=== PATIENT | female | born 1990 | race American Indian/Alaskan Native ===

== ENCOUNTER 2019-06-04 18:41 | Emergency (ER) | payer MEDICAID ==
--- NOTE | 2019-06-04 19:02 | Event Note ---
ED Screening Note ED Screening Note: sore throat, headache; vomiting started yesterday ob [facility] dec 03 lmp due aug 07 no abd pain; no bleeding; no cramps This initial assessment/diagnostic orders/clinical plan/treatment(s) is/are subject to change based on patients health status, clinical progression and re- assessment by fellow clinical providers in the ED. Further treatment and workup at subsequent clinical providers discretion. Patient/guardian urged not to elope from the ED as their condition may be serious if not clinically assessed and managed. Initial orders include: ua to ro uti as source of illness reeval in ACC FHT
[2019-06-04 19:05] VITALS: BP 108/61
[2019-06-04] MEDS ORDERED: ZOFRAN ODT PO ONE (19:17)
[2019-06-04 20:12] LABS: Bacteria,Urine 1+ /HPF (Negative); Bilirubin,Urine NEG (Negative); Blood,Urine NEG (Negative); Color,Urine Yellow (Yellow); Mucus,Urine FEW /HPF; Protein,Urine <15 mg/dL mg/dL (Negative); Urobilinogen,Urine < 2.0 mg/dL (<2.0)
[2019-06-04] MEDS ORDERED: ZOFRAN ODT ONE (22:13)
[2019-06-04] MEDS ORDERED: CLEOCIN PO ONE (23:56)
[2019-06-04] MEDS ORDERED: TYLENOL PO ONE (23:56)
[2019-06-04] MEDS ORDERED: DELTASONE PO ONE (23:56)
--- NOTE | 2019-06-05 00:04 | Emergency Department Report ---
- General Chief Complaint: Upper Respiratory Infection Stated Complaint: /SORE THROAT/VOMITING Time Seen by Provider: 06/04/19 19:00 Source: patient Mode of arrival: Ambulatory Limitations: No Limitations - History of Present Illness Initial Comments: Patient is a 28-year-old female who presents with sore throat cough and congestion patient patient history of present patient denies abdominal pain or shortness of breath and back pain and vaginal bleeding no contractions during her -related concerns MD Complaint: fever, sore throat, rhinorrhea, nasal congestion Onset/Timin -: days(s) Severity: moderate Severity scale (0 -10): 4 Quality: burning, aching Consistency: constant Improves With: nothing Worsens With: nothing Associated Symptoms: fever, chills, rhinorrhea, nasal congestion, sore throat, cough, vomiting. denies: chest pain, shortness of breath, rash, right sweats, epistaxis, hoarseness, ear pain Treatments Prior to Arrival: none - Related Data Previous Rx's Medication Instructions Recorded Last Taken Type Clindamycin [Clindamycin CAP] 300 mg PO Q8H #21 cap 08/03/15 Unknown Rx HYDROcodone/APAP 5-325 [[place] 1 each PO Q6H PRN #30 tablet 08/23/15 Unknown Rx 5-325 mg TAB] Ibuprofen [Motrin 600 MG tab] 600 mg PO Q6HR #30 tablet 08/23/15 Unknown Rx Multivitamin with Iron 1 each PO DAILY #30 tablet 08/23/15 Unknown Rx [Multivitamins with Iron] Acetaminophen [Acetaminophen TAB] 650 mg PO Q6HR PRN #30 tablet 06/04/19 Unknown Rx predniSONE [Deltasone] 40 mg PO QDAY 5 Days #10 tab 06/04/19 Unknown Rx Clindamycin [Clindamycin CAP] 300 mg PO Q8H 10 Days #30 cap 06/05/19 Unknown Rx Allergies Allergy/AdvReac Type Severity Reaction Status Date / Time No Known Allergies Allergy Verified 08/22/15 00:03 ED Review of Systems ROS: Stated complaint: /SORE THROAT/VOMITING Other details as noted in HPI Constitutional: denies: chills, fever Eyes: denies: eye pain, eye discharge, vision change ENT: congestion. denies: ear pain, throat pain, dental pain, hearing loss, epistaxis Respiratory: denies: cough, shortness of breath, wheezing Cardiovascular: denies: chest pain, palpitations Endocrine: no symptoms reported Gastrointestinal: denies: abdominal pain, nausea, vomiting, diarrhea Genitourinary: denies: urgency, dysuria, discharge Musculoskeletal: denies: back pain, joint swelling, arthralgia Skin: denies: rash, lesions Neurological: denies: headache, weakness, paresthesias Psychiatric: denies: anxiety, depression Hematological/Lymphatic: denies: easy bleeding, easy bruising ED Past Medical Hx - Past Medical History Previous Medical History?: No Hx Hypertension: No Hx Congestive Heart Failure: No Hx Diabetes: No Hx Deep Vein Thrombosis: No Hx Renal Disease: No Hx Sickle Cell Disease: No Hx Seizures: No Hx Asthma: No Hx COPD: No Hx HIV: No - Surgical History Past Surgical History?: No - Social History Smoking Status: Never Smoker Substance Use Type: None - Medications Home Medications: Home Medications Medication Instructions Recorded Confirmed Last Taken Type Clindamycin [Clindamycin CAP] 300 mg PO Q8H #21 cap 08/03/15 Unknown Rx HYDROcodone/APAP 5-325 [[place] 1 each PO Q6H PRN #30 tablet 08/23/15 Unknown Rx 5-325 mg TAB] Ibuprofen [Motrin 600 MG tab] 600 mg PO Q6HR #30 tablet 08/23/15 Unknown Rx Multivitamin with Iron 1 each PO DAILY #30 tablet 08/23/15 Unknown Rx [Multivitamins with Iron] Acetaminophen [Acetaminophen TAB] 650 mg PO Q6HR PRN #30 tablet 06/04/19 Unknown Rx predniSONE [Deltasone] 40 mg PO QDAY 5 Days #10 tab 06/04/19 Unknown Rx Clindamycin [Clindamycin CAP] 300 mg PO Q8H 10 Days #30 cap 06/05/19 Unknown Rx ED Physical Exam - General Limitations: No Limitations General appearance: alert, in no apparent distress - Head Head exam: Present: atraumatic, normocephalic, normal inspection - Eye Eye exam: Present: normal appearance, PERRL, EOMI. Absent: conjunctival injection, nystagmus Pupils: Present: normal accommodation - ENT ENT exam: Present: mucous membranes moist, TM's normal bilaterally, normal external ear exam - Expanded ENT Exam Expanded Ear exam: Present: normal external inspection Throat exam: Positive: normal inspection, tonsillar erythema, tonsillomegaly, other (uvula midline moderat erythema mild white exudate no swellin no stider ). Negative: tonsillar exudate, R peritonsillar mass, L peritonsillar mass - Neck Neck exam: Present: normal inspection, full ROM, lymphadenopathy. Absent: tenderness, meningismus, thyromegaly - Expanded Neck Exam Expanded Neck exam: Absent: tenderness, midline deformity, anterior neck swelling, thyroid mass, carotid bruit, tracheal deviation - Respiratory Respiratory exam: Present: normal lung sounds bilaterally. Absent: respiratory distress, wheezes, rhonchi, stridor, chest wall tenderness, accessory muscle use, decreased breath sounds, prolonged expiratory - Cardiovascular Cardiovascular Exam: Present: regular rate, normal rhythm, normal heart sounds. Absent: irregular rhythm, systolic murmur, diastolic murmur, rubs, gallop - GI/Abdominal GI/Abdominal exam: Present: soft, normal bowel sounds. Absent: distended, tenderness, guarding, rebound, rigid, bruit, hernia - Rectal Rectal exam: Present: deferred - Extremities Exam Extremities exam: Present: normal inspection, full ROM, normal capillary refill. Absent: tenderness, pedal edema, joint swelling, calf tenderness - Back Exam Back exam: Present: normal inspection, full ROM, CVA tenderness (L). Absent: tenderness, CVA tenderness (R), muscle spasm, paraspinal tenderness, rash noted - Neurological Exam Neurological exam: Present: alert, oriented X3, CN II-XII intact, normal gait, reflexes normal - Psychiatric Psychiatric exam: Present: normal affect, normal mood, anxious - Skin Skin exam: Present: warm, dry, intact, normal color. Absent: rash ED Course Vital Signs 06/04/19 19:02 Temperature 98 F Pulse Rate 111 H Respiratory 18 Rate Blood Pressure 108/61 O2 Sat by Pulse 98 Oximetry ED Medical Decision Making - Lab Data Labs 06/04/19 19:45 Urine Color Yellow Urine Turbidity Slightly-cloudy Urine pH 7.0 Ur Specific [place] 1.018 Urine Protein <15 mg/dl Urine Glucose (UA) Neg Urine Ketones 20 Urine Blood Neg Urine Nitrite Neg Urine Bilirubin Neg Urine Urobilinogen < 2.0 Ur Leukocyte Esterase Tr Urine WBC (Auto) 3.0 Urine RBC (Auto) 2.0 U Epithel Cells (Auto) 27.0 H Urine Bacteria (Auto) 1+ Urine Mucus Few - Medical Decision Making pt is tolerating po intake there is no swelling peritonsilar abscess, no stidor no fever at this time, plan tx for bronchitis, URI, follow up with pcp in 2-3 days. pt verbalized agreement and understanding of discharge plan. Critical care attestation.: If time is entered above; I have spent that time in minutes in the direct care of this critically ill patient, excluding procedure time. ED Disposition Clinical Impression: Pharyngitis Qualifiers: Pharyngitis/tonsillitis etiology: unspecified etiology Qualified Code(s): J02.9 - Acute pharyngitis, unspecified Disposition: TO HOME OR SELFCARE Is pt being admited?: No Does the pt Need Aspirin: No Condition: Stable Instructions: Pharyngitis (ED) Prescriptions: Acetaminophen [Acetaminophen TAB] 650 mg PO Q6HR PRN #30 tablet PRN Reason: Pain Clindamycin [Clindamycin CAP] 300 mg PO Q8H 10 Days #30 cap predniSONE [Deltasone] 40 mg PO QDAY 5 Days #10 tab Referrals: AGUSTINA SILVA MD [Primary Care Provider] - 3-5 Days RONA HENDRIX MD [Emergency Provider] - 3-5 Days Forms: Work/School Release Form(ED) Time of Disposition: 00:14
== END 2019-06-05 00:28 | disposition home or self-care (01) ==
LOC: ED 18:41
DX: J02.9 Acute pharyngitis, unspecified (principal); Z79.899 Other long term (current) drug therapy; Z79.1 Long term (current) use of non-steroidal anti-inflammatories (NSAID)
CPT/HCPCS: 81001; 99283; J7512; Q0162

== ENCOUNTER 2019-08-01 04:03 | Outpatient (CLI) | payer MEDICAID ==
[2019-08-01 05:11] LABS: Bacteria,Urine 1+ /HPF (Negative); Bilirubin,Urine NEG (Negative); Blood,Urine SM (Negative); Color,Urine Yellow (Yellow); Mucus,Urine FEW /HPF; Protein,Urine <15 mg/dL mg/dL (Negative); Urobilinogen,Urine < 2.0 mg/dL (<2.0)
[2019-08-01 05:23] VITALS: BP 119/72
--- NOTE | 2019-08-01 05:36 | Ultrasound Report ---
Surgical ultrasound limited INDICATION: well-being. Evaluate KEITH FINDINGS: Single living intrauterine in cephalic position. The heart rate is 146 bpm. KEITH measures 15.4 cm, within normal limits IMPRESSION: KEITH measures 15.4 cm, as above. Signer Name: Rony Morales MD Signed: 08/01/2019 5:32 AM Workstation Name: [id number]
== END 2019-08-01 08:15 | disposition home or self-care (01) ==
LOC: TRG 04:03
PROVIDERS: ATTEND Obstetrics & Gynecology
DX: O42.92 Full-term premature rupture of membranes, unspecified as to length of time between rupture and onset of labor (principal); Z3A.39 39 weeks gestation of pregnancy
CPT/HCPCS: 59025; 76815; 81001; 96360

== ENCOUNTER 2019-08-02 03:27 | Inpatient (IN) | payer MEDICAID ==
[2019-08-02] MEDS ORDERED: BRETHINE IVP PRN (04:19)
[2019-08-02] MEDS ORDERED: BRETHINE SUB-Q PRN (04:19)
[2019-08-02] MEDS ORDERED: AMPICILLIN/NS 2 GM/100 ML 2 GM/100 ML BAG IV ONE (04:19)
[2019-08-02] MEDS ORDERED: XYLOCAINE 2% INFILTRATI ONE ×2 (04:19→14:32)
[2019-08-02] MEDS ORDERED: MINERAL OIL PO PRN (04:19)
[2019-08-02 04:54] LABS: Mean Corpuscular HGB Conc 34 % (30-34); Mean Corpuscular Volume 90 fl (79-97); Platelet Count 137 K/mm3 (140-440); Red Blood Count 4.24 M/mm3 (3.65-5.03); Red Cell Distribution Width 13.3 % (13.2-15.2)
[2019-08-02] MEDS ORDERED: PITOCin/NS 20 UNIT/1000ML DRIP 20 UNITS/1,000 ML BAG IV SCH (05:00)
[2019-08-02] MEDS ORDERED: LACTATED RINGERS 1,000 ML IV SCH (05:00)
[2019-08-02] MEDS: STADOL IV PRN ×3 (05:31→13:30)
--- NOTE | 2019-08-02 09:45 | History and Physical Report ---
History of Present Illness Date of examination: 08/02/19 Date of admission: 08/02/19 03:43 Chief complaint: Contractions History of present illness: 29yo G 2 P 1 0 0 1 @ 38 weeks 2 days here with c/o uterine contractions. She reports +FMs but denies VB or LOF. She is a [facility] patient who initiated care at 25 weeks gestation. Her course was complicated by late entry to care. She has a h/o femal circumcision. LABS: Opos, Antibody Screen neg, RI, VDRL NR, HBsAg neg, HIV neg, , Diabetes Screen 93, GC/CT neg, GBS pos. Past History - Obstetrical History Expected Date of Delivery: 08/14/19 Actual Gestation: 38 Week(s) 2 Day(s) : 2 Para: 1 Hx # Term Pregnancies: 1 Number of Pregnancies: 0 Spontaneous Abortions: 0 Induced : 0 Number of Living Children: 1 #1 Gender: Female year: 2015 (08/22/2015) Method of Delivery: Vaginal Complications: none Medications and Allergies Allergies Allergy/AdvReac Type Severity Reaction Status Date / Time No Known Allergies Allergy Verified 08/22/15 00:03 Home Medications Medication Instructions Recorded Confirmed Last Taken Type Clindamycin [Clindamycin CAP] 300 mg PO Q8H #21 cap 08/03/15 Unknown Rx HYDROcodone/APAP 5-325 [[place] 1 each PO Q6H PRN #30 tablet 08/23/15 Unknown Rx 5-325 mg TAB] Ibuprofen [Motrin 600 MG tab] 600 mg PO Q6HR #30 tablet 08/23/15 Unknown Rx Multivitamin with Iron 1 each PO DAILY #30 tablet 08/23/15 Unknown Rx [Multivitamins with Iron] Acetaminophen [Acetaminophen TAB] 650 mg PO Q6HR PRN #30 tablet 06/04/19 Unknown Rx predniSONE [Deltasone] 40 mg PO QDAY 5 Days #10 tab 06/04/19 Unknown Rx Clindamycin [Clindamycin CAP] 300 mg PO Q8H 10 Days #30 cap 06/05/19 Unknown Rx Active Meds: Active Medications Butorphanol Tartrate (Stadol) 2 mg IV Q2H PRN PRN Reason: Pain , Severe (7-10) Last Admin: 08/02/19 05:31 Dose: 2 mg Documented by: Ephedrine Sulfate (Ephedrine Sulfate) 10 mg IV Q2M PRN PRN Reason: Hypotension Fentanyl (Sublimaze) 100 mcg IV Q2H PRN PRN Reason: Labor Pain Oxytocin/Sodium Chloride (Pitocin/Ns 20 Unit/1000ml Drip) 20 units in 1,000 mls @ 125 mls/hr IV DIRECT ROQUE Lactated Ringer's (Lactated Ringers) 1,000 mls @ 125 mls/hr IV DIRECT ROQUE Last Admin: 08/02/19 05:30 Dose: 125 mls/hr Documented by: Oxytocin/Sodium Chloride (Pitocin/Ns 30 Unit/500ml) 30 units in 500 mls @ 0 mls/hr IV TITR ROQUE; Protocol Mineral Oil (Mineral Oil) 30 ml PO QHS PRN PRN Reason: Constipation Terbutaline Sulfate (Brethine) 0.25 mg SUB-Q ONCE PRN PRN Reason: Hyperstimulation/Hypertonicity Terbutaline Sulfate (Brethine) 0.25 mg IVP ONCE PRN PRN Reason: Hyperstimulation/Hypertonicity Review of Systems All systems: negative - Vital Signs Vital signs: Vital Signs Temp 97.7 F 08/02/19 03:54 Temp Pulse Resp BP Pulse Ox 97.9 F 67 16 111/67 100 08/02/19 08:27 08/02/19 09:35 08/02/19 05:31 08/02/19 08:45 08/02/19 09:35 - Physical Exam Genitourinary (Female): Positive: normal external genitalia, normal perenium. Negative: perineal/vulvar lesions - Obstetrical FHR: auscultation normal, category 1 FHR comments: baseline 130, moderate variability, 15x15 accels, no decels Uterine Contraction Monitor Mode: External Cervical Dilatation: 4 Cervical Effacement Percentage: 70 station: -3 Uterine Contraction Frequency (min): 4-6 Uterine Contraction Pattern: Regular Results Result Diagrams: 08/02/19 04:34 Abnormal lab results 08/02/19 Range/Units 04:34 Plt Count 137 L (140-440) K/mm3 All other labs normal. Assessment and Plan - Patient Problems (1) 38 weeks gestation of Current Visit: Yes Status: Acute (2) Active labor at term Current Visit: Yes Status: Acute Plan to address problem: Admit to L&D with routine labor orders Start Pitocin for labor augmentation Anticipate vaginal delivery (3) Group B Streptococcus carrier, +RV culture, currently Current Visit: Yes Status: Acute
[2019-08-02] MEDS ORDERED: PITOCin/NS 30 UNIT/500ML 30 UNITS/500 ML BAG IV SCH (10:00)
[2019-08-02] MEDS ORDERED: AMPICILLIN/NS 1 GM/50 ML 1 GM/50 ML BAG IV SCH (10:30)
[2019-08-02] MEDS ORDERED: SUBLIMAZE IV PRN (10:30)
[2019-08-02] MEDS ORDERED: NALOXONE IV PRN (14:30)
[2019-08-02] MEDS ORDERED: fentaNYL-BUPIV 2 MCG/ML-0.125% 200 MCG/100 ML BAG EPIDURAL SCH (15:00)
--- NOTE | 2019-08-02 15:18 | Procedure Note ---
OB Delivery Note - Delivery Date of Delivery: 08/02/19 (14:26) Surgeon: GLENIS STEVENS (CNM) Estimated blood loss: 200cc - Vaginal Delivery presentation: vertex Delivery position: OA Intrapartum events: none Delivery induction: none Delivery augmentation: pitocin Delivery monitor: external FHT, external uterine Route of delivery: Delivery placenta: spontaneous (14:35) Delivery cord: nuchal cord (CAN x1, loose. Reduced after delivery), 3 umbilical vessels Delivery laceration: 1st degree (vaginal/perineal), other (periurethral) Delivery repair: vicryl (3-0 CT1 & SH) Anesthesia: local, intravenous Delivery comments: of a nonvigorous 6lbs 9.5oz male on 08/02/19 @ 14:26. NICU team called. Baby placed [id number], umbilical cord double-clamped and cut and baby transferred to warmer for resuscitation. Cord gases collected and sent. Cord blood also collected. Spontaneous delivery of placenta' Gina-side presenting at 14:35. 1st degree perineal/vaginal and right superficial periurethral lacerations noted and repaired under local anesthesia. Pt tolerated the procedure well with minimal to moderate discomfort. Placenta intact; was discarded. Mom and baby in stable condition. - A at 1 minute: 3 at 5 minutes: 9 Infant Gender: Male (6lbs 9.5oz (2991 gm); 19in)
[2019-08-02] MEDS ORDERED: MILK OF MAGNESIA PO PRN (15:28)
[2019-08-02] MEDS ORDERED: ZOFRAN IV PRN (15:28)
[2019-08-02] MEDS ORDERED: LANSINOH TP PRN (15:28)
[2019-08-02] MEDS ORDERED: TYLENOL PO PRN (15:28)
[2019-08-02] MEDS ORDERED: PHENERGAN PR PRN (15:28)
[2019-08-02] MEDS ORDERED: BENADRYL PO PRN (15:28)
[2019-08-02] MEDS ORDERED: PHENERGAN PO PRN (15:28)
[2019-08-02] MEDS ORDERED: TUCKS PAD TP PRN (15:28)
[2019-08-02] MEDS ORDERED: DULCOLAX PR PRN (15:28)
[2019-08-02] MEDS ORDERED: SODIUM CHLORIDE FLUSH SYRINGE 10 ML IV SCH (16:00)
[2019-08-02] MEDS: IBUPROFEN PO SCH (18:21)
[2019-08-03] MEDS: IBUPROFEN PO SCH ×5 (00:23→23:47)
[2019-08-03 08:56] LABS: Hemoglobin 12.4 gm/dl (10.1-14.3)
[2019-08-03] MEDS: PRENATAL VITAMIN PO SCH (09:48)
[2019-08-03] MEDS: FEOSOL PO SCH (09:48)
--- NOTE | 2019-08-03 09:49 | Progress Note ---
Assessment and Plan - Patient Problems (1) Status post normal vaginal delivery Current Visit: No Status: Acute Plan to address problem: Continue routine PP orders Anticipate d/c home in 24 hrs Subjective - Subjective Date of service: 08/03/19 Principal diagnosis: - PPD#1 Interval history: See admission H & P and OB delivery summary Patient reports: appetite normal, voiding normally, pain well controlled, ambulating normally, no flatus, no bowel movement [place]: doing well, bottle feeding (and ) Objective - Vital Signs Latest vital signs: Vital Signs Temp Pulse Resp BP BP Pulse Ox 08/03/19 08:25 98.2 F 83 18 144/66 08/03/19 01:13 98.6 F 87 20 112/68 99 08/02/19 21:23 98.7 F 92 H 20 101/60 96 08/02/19 16:55 98.0 F 83 16 113/74 99 08/02/19 15:00 97.8 F 08/02/19 14:45 88 134/70 08/02/19 14:34 100 H 123/76 08/02/19 14:29 96 H 99 08/02/19 14:24 123 H 99 08/02/19 14:19 86 100 08/02/19 14:14 92 H 100 08/02/19 14:09 109 H 100 08/02/19 14:04 74 100 08/02/19 13:59 96 H 100 08/02/19 13:54 74 99 08/02/19 13:49 81 99 08/02/19 13:44 87 100 08/02/19 13:39 76 98 08/02/19 13:34 106 H 100 08/02/19 13:27 78 99 08/02/19 13:22 90 100 08/02/19 13:18 97.0 F L 08/02/19 13:17 101 H 100 08/02/19 13:12 79 99 08/02/19 13:07 87 100 08/02/19 13:02 91 H 100 08/02/19 12:57 86 98 08/02/19 12:52 74 99 08/02/19 12:47 81 98 08/02/19 12:42 76 99 08/02/19 12:37 122 H 100 08/02/19 12:32 108 H 99 08/02/19 12:27 76 98 08/02/19 12:22 115 H 97 08/02/19 12:17 79 99 08/02/19 12:12 77 98 08/02/19 12:07 114 H 96 08/02/19 12:02 100 H 98 08/02/19 11:57 110 H 100 08/02/19 11:52 80 100 08/02/19 11:47 96 H 99 08/02/19 11:42 96 H 100 08/02/19 11:37 86 99 08/02/19 11:32 76 100 08/02/19 11:27 83 99 08/02/19 11:22 81 98 08/02/19 11:17 96 H 96 08/02/19 11:12 89 98 08/02/19 11:07 85 99 08/02/19 11:02 84 98 08/02/19 10:57 80 98 08/02/19 10:52 80 98 08/02/19 10:47 77 98 08/02/19 10:42 81 98 08/02/19 10:37 95 H 97 08/02/19 10:32 81 98 08/02/19 10:27 84 100 08/02/19 10:22 93 H 100 08/02/19 10:17 111 H 98 08/02/19 10:12 77 100 08/02/19 09:50 81 99 Intake and Output 08/02/19 08/03/19 08/03/19 23:59 07:59 15:59 Intake Total 240 120 480 Output Total 1600 Balance -1360 120 480 Intake: Oral 240 120 480 Output: Urine 1600 Void 1600 Other: Total, Intake Amount 240 120 480 Total, Output Amount 300 - Exam Breasts: Present: normal Cardiovascular: Present: Regular rate Lungs: Present: Normal air movement Abdomen: Present: soft Uterus: Present: firm, fundal height above umbilicus (U+1) Extremities: Present: normal Deep Tendon Reflex Grade: Normal +2 Incision: Present: other (1st degree perineal and right periurethral lacerations, healing as expected) - Labs Labs: Abnormal lab results 08/02/19 Range/Units 14:51 POC ABG pH 7.265 L (7.35-7.45) POC ABG pCO2 47.1 H (35-45)
--- NOTE | 2019-08-03 09:52 | Discharge Summary ---
Providers - Providers Date of Admission: 08/02/19 04:19 Date of discharge: 08/04/19 (1200) Attending physician: NILDA JO MD Primary care physician: ZHEN AZUL MD Hospitalization Reason for admission: active labor Delivery: Episiotomy: none Laceration: 1st degree (and right periurethral tear, healing as expected) Other procedures: none complications: none [place] baby: male Hospital course: See admission H & P, OB delivery summary and PP progress note Condition at discharge: Good Disposition: DC-01 TO HOME OR SELFCARE - Discharge Diagnoses (1) Status post normal vaginal delivery Status: Acute Plan - Provider Discharge Summary Activity: routine, no sex for 6 weeks, no heavy lifting 4 weeks, no strenuous exercise Diet: routine Instructions: routine Additional instructions: [] Smoking cessation referral if applicable(refer to patient education folder for contact #) [] Refer to [facility]'s [facility] Booklet Call your doctor immediately for: * Fever > 100.5 * Heavy vaginal bleeding ( >1 pad per hour) * Severe persistent headache * Shortness of breath * Reddened, hot, painful area to leg or breast * Drainage or odor from incision. * Keep laceration repair sites clean and dry at all times and follow doctor's instructions regarding bathing/showering - Follow up plan Follow up: ZHEN AZUL MD [Primary Care Provider] - 6 Weeks
[2019-08-03] MEDS ORDERED: AFLURIA QUAD 2019-2020 (3YR UP) IM ONE (12:00)
[2019-08-03] MEDS: NORCO 5/325 PO PRN (21:36)
[2019-08-04] MEDS: NORCO 5/325 PO PRN ×2 (03:42→10:01)
[2019-08-04] MEDS: IBUPROFEN PO SCH (05:17)
[2019-08-04] MEDS ORDERED: BOOSTRIX IM ONE (06:00)
[2019-08-04] MEDS: FEOSOL PO SCH (10:00)
[2019-08-04] MEDS: PRENATAL VITAMIN PO SCH (10:01)
[2019-08-04 18:07] VITALS: BP 119/71
== END 2019-08-04 19:33 | disposition home or self-care (01) | DRG 775 ==
LOC: TRG 03:27 → LD 03:43 → TRG 03:43 → OBSVTOIN 04:19 → OB 16:50
PROVIDERS: ADMIT Obstetrics & Gynecology; ATTEND Obstetrics & Gynecology
PROC: 10E0XZZ Delivery of Products of Conception, External Approach (ICD-10-PCS; principal; 2019-08-02)
PROC: 0HQ9XZZ Repair Perineum Skin, External Approach (ICD-10-PCS; 2019-08-02)
PROC: 3E0234Z Introduction of Serum, Toxoid and Vaccine into Muscle, Percutaneous Approach (ICD-10-PCS; 2019-08-04)
DX: O99.824 Streptococcus B carrier state complicating childbirth (principal); Z3A.38 38 weeks gestation of pregnancy; Z37.0 Single live birth; Z23 Encounter for immunization; O69.81X0 Labor and delivery complicated by cord around neck, without compression, not applicable or unspecified; O70.0 First degree perineal laceration during delivery
CPT/HCPCS: 36415; 82803; 85014; 85018; 85027; 86850; 86900; 86901; 90471; 90715; G0378; J0290; J0595; J2590; J7120

== ENCOUNTER 2021-01-14 07:28 | Emergency (ER) | payer MEDICAID ==
[2021-01-14 07:40] VITALS: BP 103/66
--- NOTE | 2021-01-14 08:23 | XRay Report ---
CHEST 2 VIEWS INDICATION / CLINICAL INFORMATION: cough. COMPARISON: None available. FINDINGS: SUPPORT DEVICES: None. HEART / MEDIASTINUM: No significant abnormality. LUNGS / PLEURA: No significant pulmonary or pleural abnormality. No pneumothorax. ADDITIONAL FINDINGS: No significant additional findings. IMPRESSION: 1. No acute findings. Signer Name: Fracisco Blackmon MD Signed: 01/14/2021 8:19 AM Workstation Name: [id number]
--- NOTE | 2021-01-14 08:28 | Emergency Department Report ---
Minor Respiratory - HPI Chief Complaint: Upper Respiratory Infection Stated Complaint: COUGH, SORE THROAT, LOSS OF SMELL Time Seen by Provider: 01/14/21 07:40 Duration: 2 Days Pain Location: Chest Severity: mild Minor Respiratory: Yes Sore Throat, Yes Able to Tolerate Fluids, Yes Cough, No Rhinorrhea, No Ear Pain, No Sick Contacts, No Hemoptysis, No Chest Pain, No Shor tness of Breath, No Fever Other History: Patient is a 30-year-old -[place] female that comes to the emergency room complaining of loss of taste and concerns for COVID-19. She has no known exposure. Her vital signs are normal. She has no tachycardia, hypotension or fever. She is amb[facility] to [facility]. Patient although has consented to a chest x-ray. ED Review of Systems ROS: Stated complaint: COUGH, SORE THROAT, LOSS OF SMELL Other details as noted in HPI Comment: All other systems reviewed and negative ED Past Medical Hx - Past Medical History Previous Medical History?: No Hx Hypertension: No Hx Congestive Heart Failure: No Hx Diabetes: No Hx Deep Vein Thrombosis: No Hx Renal Disease: No Hx Sickle Cell Disease: No Hx Seizures: No Hx Asthma: No Hx COPD: No Hx HIV: No - Surgical History Past Surgical History?: No - Family History Family history: no significant - Social History Smoking Status: Never Smoker Substance Use Type: None - Medications Home Medications: Home Medications Medication Instructions Recorded Confirmed Last Taken Type Clindamycin [Clindamycin CAP] 300 mg PO Q8H #21 cap 08/03/15 08/03/19 Unknown Rx HYDROcodone/APAP 5-325 [[place] 1 each PO Q6H PRN #30 tablet 08/23/15 08/03/19 Unknown Rx 5-325 mg TAB] Ibuprofen [Motrin 600 MG tab] 600 mg PO Q6HR #30 tablet 08/23/15 08/03/19 Unknown Rx Multivitamin with Iron 1 each PO DAILY #30 tablet 08/23/15 08/03/19 Unknown Rx [Multivitamins with Iron] Acetaminophen [Acetaminophen TAB] 650 mg PO Q6HR PRN #30 tablet 06/04/19 08/03/19 Unknown Rx predniSONE [Deltasone] 40 mg PO QDAY 5 Days #10 tab 06/04/19 08/03/19 Unknown Rx Clindamycin [Clindamycin CAP] 300 mg PO Q8H 10 Days #30 cap 06/05/19 08/03/19 Unknown Rx Benzonatate [Tessalon Perles] 100 mg PO Q12H PRN #20 capsule 01/14/21 Unknown Rx Minor Respiratory Exam - Exam General: Vital signs noted. No distress. Alert and acting appropriately. HEENT: Yes Moist Mucous Membranes, No Pharyngeal Erythema, No Pharyngeal Exudates, No Rhinorrhea, No Conjuctival Injection, No Frontal Tenderness, No Maxillary Tenderness Ear: Neither TM Bulge, Neither TM Erythema, Neither EAC Pain, Neither EAC Discharge Neck: Yes Supple, No Adenopathy Lungs: Yes Good Air Exchange, No Wheezes, No [place], No Stridor, No Cough, No Labored Respirations, No Retractions, No Use of Accessory Muscles, No Other Abnormal Lung Sounds Heart: Yes Regular, No Murmur Abdomen: Yes Normal Bowel Sounds, No Tenderness, No Peritoneal Signs Skin: No Rash, No Edema Neurologic: Alert and oriented, no deficits. Musculoskeletal: Unremarkable. ED Course Vital Signs 01/14/21 01/14/21 07:32 07:33 Temperature 98.4 F 98.4 F Pulse Rate 77 75 Respiratory 18 16 Rate Blood Pressure 103/66 Blood Pressure 103/66 [Right] O2 Sat by Pulse 99 100 Oximetry ED Medical Decision Making - Radiology Data Radiology results: report reviewed, image reviewed - Medical Decision Making Vital Signs 01/14/21 01/14/21 07:32 07:33 Temperature 98.4 F 98.4 F Pulse Rate 77 75 Respiratory 18 16 Rate Blood Pressure 103/66 Blood Pressure 103/66 [Right] O2 Sat by Pulse 99 100 Oximetry X-ray noted to have no pneumonia or consolidation. Discussed risk and benefits with patient given her . I referred her to rapid testing stations for COVID-19. Patient being discharged home with conservative management and symptom relief. She verbalizes understanding of discharge plan of care including follow-up with her MORTUARY TECHNICIAN, PCP. Patient ambulatory nontoxic and [id number] on dc from ER. Taking PO - Differential Diagnosis ro pna/uri/covid Critical care attestation.: If time is entered above; I have spent that time in minutes in the direct care of this critically ill patient, excluding procedure time. ED Disposition Clinical Impression: Viral URI, Disposition: DC-01 TO HOME OR SELFCARE Is pt being admited?: No Does the pt Need Aspirin: No Condition: Stable Instructions: Viral Respiratory Infection, [id number] Additional Instructions: OVER THE COUNTER SYMPTOM RELIEF TYLENOL IS SAFE FOR FOLLOW UP WITH COVID TESTING LOCATIONS FOR RAPID TEST SEE OB OR PCP FOR CONCERNS STAY WELL HYDRATED REST Prescriptions: Benzonatate [Tessalon Perles] 100 mg PO Q12H PRN #20 capsule PRN Reason: Cough Referrals: ROGERIO COBB MD [Staff Physician] - 3-5 Days SUMEET OLIVARES MD [Staff Physician] - 3-5 Days Time of Disposition: 08:26
== END 2021-01-14 08:39 | disposition home or self-care (01) ==
LOC: ED 07:28
DX: O99.511 Diseases of the respiratory system complicating pregnancy, first trimester (principal); J06.9 Acute upper respiratory infection, unspecified; B97.89 Other viral agents as the cause of diseases classified elsewhere; Z3A.01 Less than 8 weeks gestation of pregnancy; Z79.899 Other long term (current) drug therapy
CPT/HCPCS: 71046; 99283

== ENCOUNTER 2021-05-26 04:55 | Outpatient (CLI) | payer MEDICAID ==
[2021-05-26 05:21] VITALS: BP 113/73
[2021-05-26] MEDS ORDERED: LACTATED RINGERS 1000 ML IV SOLN IV SCH (08:00)
== END 2021-05-26 09:10 | disposition home or self-care (01) ==
LOC: TRG 04:55 → APU 04:57 → TRG 09:10
DX: O26.893 Other specified pregnancy related conditions, third trimester (principal); R10.9 Unspecified abdominal pain; Z3A.38 38 weeks gestation of pregnancy
CPT/HCPCS: 59025; 96360; 96361; J7120